=== PATIENT | female | born 1985 | race Caucasian/White ===

== ENCOUNTER 2025-09-30 23:41 | Emergency (ER) | payer SELFPAY ==
[2025-10-01 00:30] LABS: Pregnancy Test - Urine (BHCG) Negative (Negative); Pregu Control Background? CLEAR/WHITE (CLR/WHITE); Pregu Control Bar Appear? YES (CONTROL BAR)
== END 2025-10-01 01:07 | disposition home or self-care (01) ==
LOC: CSHERS 23:41
DX: F41.1 Generalized anxiety disorder (principal); R06.02 Shortness of breath; F17.210 Nicotine dependence, cigarettes, uncomplicated
CPT/HCPCS: 71045; 81025; 93005